=== PATIENT | female | born 1990 | race Two or more races ===

== ENCOUNTER 2024-07-15 08:31 | Emergency (ER) | payer MEDICAID, SELFPAY ==
[2024-07-15 08:33] VITALS: BMI 34.7
[2024-07-15 08:41] VITALS: BP 111/74; PULSE 88; RESP 19; TEMP 36.6; O2SAT 99
[2024-07-15 08:42] VITALS: BMI 27.5
--- NOTE | 2024-07-15 08:43 | XR_ITS ---
Examination: CT brain head without contrast. 2-D sagittal coronal reconstructions Date and time of exam:July 15, 2024 0937 hours INDICATIONS: Headaches beginning 2 months ago CTDI: vol (mGy):46.9 DLP: (mGycm):864 Technique: Multiple CT axial sections of the brain have been obtained, 5 mm slice thickness. Contrast has not been administered. 2-D sagittal, coronal reconstructions have been obtained Low dose protocols were performed. One or more of the following dose reduction techniques were used; automated exposure control, adjustment of the mA and/or KV according to patient size, use of iterative reconstruction technique. Findings: No significant ventricular enlargement. Intra-axial or extra-axial hemorrhage density is not seen. No mass effect or midline shift Basal cisterns are not remarkable. Fourth ventricle is midline. Cranial vault intact. Impression: Negative for acute hemorrhage, mass effect or midline shift Advise clinical correlation follow-up accordingly
[2024-07-15 10:00] LABS: Basophils # (Auto) 0.1 Thou/mm3 (0.0-0.2); Basophils % (Auto) 1 % (0-2.5); Eosinophils # (Auto) 0.2 Thou/mm3 (0.0-0.5); Eosinophils % (Auto) 4 % (0-10); Hematocrit 39.1 % (36.0-46.0); Immature Granulocytes % (Auto) 0 % (0-0); Immature Granulocytes Auto 0.02 Thou/mm3 (0.00-0.00); Lymphocytes # (Auto) 1.6 Thou/mm3 (1.0-4.8); Lymphocytes % (Auto) 33 % (10-50); Mean Corpuscular HGB Conc 33.2 g/dl (31.0-37.0); Mean Corpuscular Hemoglobin 28.7 pg (25.0-35.0); Mean Corpuscular Volume 86 fL (80-100); Monocytes # (Auto) 0.5 Thou/mm3 (0.0-0.8); Monocytes % (Auto) 11 % (0-12); Neutrophils # (Auto) 2.4 Thou/mm3 (1.8-7.7); Neutrophils % (Auto) 50 % (37-80); Nucleated Red Blood Cell % 0 /100 WBC (0); Platelet Count 232 Thou/mm3 (140-440); RDW Standard Deviation 38.9 fL (36.4-46.3); Red Blood Count 4.53 Miln/mm3 (4.00-5.20); White Blood Count 4.7 Thou/mm3 (3.6-11.0)
[2024-07-15 10:19] LABS: Alanine Aminotransferase 16 U/L (10-49); Albumin, Serum 4.6 gm/dL (3.5-5.0); Albumin/Globulin Ratio 1.6 (1.2-2.2); Alkaline Phosphatase 93 U/L (46-116); Anion Gap 6 (7-16); Aspartate Amino Transferase 21 U/L (0-34); BUN/Creatinine Ratio 13 Ratio (12-20); Bilirubin,Total 0.7 mg/dL (0.3-1.2); Blood Urea Nitrogen 9 mg/dL (9-23); Carbon Dioxide 26.1 mMol/L (20.0-31.0); Chloride 103 mMol/L (98-107); Creatinine (Component) 0.7 mg/dL (0.6-1.3); Estimated Creatinine Clearance 107.7 mL/min (>60); Globulin 2.8 gm/dL (2.3-3.5); Glucose 95 mg/dL (74-106); Osmolality,Calculated 268 (275-295); Potassium 4.2 mMol/L (3.4-5.1); Sodium 135 mMol/L (136-145); Total Protein 7.4 gm/dL (5.7-8.2); eGFR > 60 See Note
--- NOTE | 2024-07-15 10:26 | EDNOTE_ITS ---
ED Headache RME/HPI General Chief Complaint: Headache Stated Complaint: SHAFFER x2 MONTHS, EYES BULGING TODAY Time Seen by Provider: 07/15/24 08:34 Arrival date/time: 07/15/24 08:31 33-year-old female presents to the emergency department complains of headache ongoing intermittently for the last couple of months patient ports no chest pain or shortness of breath no weakness no dizziness Limitations: no limitations Related Data Previous Rx's ?Medication ?Instructions ?Recorded cyclobenzaprine 10 mg tablet 10 mg PO TID PRN muscle spasm #30 12/23/20 tabs ibuprofen 800 mg tablet 800 mg PO TID PRN pain #30 tabs 12/23/20 tramadol 50 mg tablet 50 mg PO BID PRN pain #7 tabs 12/23/20 ibuprofen 600 mg tablet 600 mg PO Q6H #30 tabs 09/29/22 ibuprofen 600 mg tablet 600 mg PO Q6H #30 tabs 06/11/23 acetaminophen-caffeine 500 mg-65 1 tab PO Q6H PRN pain #30 tabs 07/15/24 mg tablet (Excedrin Tension Headache) ibuprofen 600 mg tablet 600 mg PO Q6H #30 tabs 07/15/24 Allergies Allergy/AdvReac Type Severity Reaction Status Date / Time No Known Allergies Allergy Verified 07/15/24 08:36 Review of Systems Review of Systems Systems Reviewed: All systems reviewed, normal except as documented Constitutional Constitutional: Reports system reviewed and no additional complaints, except as documented, Denies fever(s) and Reports headache(s) Eyes Eyes: Reports system reviewed and no additional complaints, except as documented and Denies blurry vision ENT Ears, Nose, Mouth, and Throat: Reports system reviewed and no additional complaints, except as documented, Reports headache(s), Reports nasal congestion and Reports nasal discharge Cardiovascular Cardiovascular: Reports system reviewed and no additional complaints, except as documented, Denies chest pain and Denies dyspnea Respiratory Respiratory: Reports system reviewed and no additional complaints, except as documented, Denies chest congestion, Denies cough and Denies dyspnea Gastrointestinal Gastrointestinal: Reports system reviewed and no additional complaints, except as documented and Denies abdominal pain Integumentary/Breasts Skin/Breast: Reports system reviewed and no additional complaints, except as documented and Denies rash Neurologic Neurologic: Reports system reviewed and no additional complaints, except as documented, Reports as per HPI and Reports headache(s) Past Medical History Past Medical History NEUROLOGIC: Negative Neurological Disorders CARDIAC: Negative Cardiac Disorders ED Exam General Limitations: Present no limitations General appearance: Present alert and in no apparent distress Head Head exam: Present atraumatic, normocephalic and normal inspection Eye Eye exam: Present normal appearance, PERRL and EOMI; Absent conjunctival injection ENT ENT exam: Present normal exam, normal oropharynx and mucous membranes moist Neck Neck exam: Present normal inspection, full ROM and trachea midline Chest Chest inspection: Present normal inspection and symmetric chest wall rise Respiratory Respiratory exam: Present normal lung sounds bilaterally; Absent respiratory distress Cardiovascular Cardiovascular exam: Present regular rate, normal rhythm and normal heart sounds Abdominal Exam Abdominal exam: Present soft and normal bowel sounds; Absent distention, tenderness, guarding, rebound or rigidity Extremities Exam Extremities exam: Present normal inspection and full ROM Back Exam Back exam: Present normal inspection and full ROM Neurological Exam Neurological exam: Present alert, oriented X3 and CN II-XII intact Psychiatric Psychiatric exam: Present normal affect and normal mood Skin Skin exam: Present warm, dry, intact and normal color Course Quality Measures none Orders Category Date Time Status Bedside COVID-19 Antigen Test NOW Care 07/15/24 08:44 Completed Bedside Influenza A&B Antigen Test NOW Care 07/15/24 08:[address] head/brain wo con Stat Exams 07/15/24 08:43 Completed CBC [CBC] Stat Lab 07/15/24 09:46 Completed CMP [Comprehensive Metabolic Panel] Stat Lab 07/15/24 09:46 Completed HCG,Qualitative Serum Stat Lab 07/15/24 09:46 Completed Vital Signs Vital signs: Vital Signs Temperature 97.9 F 07/15/24 08:41 Pulse Rate 88 07/15/24 08:41 Respiratory Rate 19 07/15/24 08:41 Blood Pressure 111/74 07/15/24 08:41 Pulse Oximetry (%) 99 07/15/24 08:41 Oxygen Delivery Method Room Air 07/15/24 08:41 O2 saturation 99% room air within normal limits Headache MDM Narrative MDM Narrative:: 33-year-old female presents to the emergency department complains of headache ongoing intermittently for the last couple of months patient ports no chest pain or shortness of breath no weakness no dizziness On exam patient has no abnormal neurological findings patient walks with steady gait Lab work as well as CT scan obtained no acute emergent findings noted As patient has no abnormal neurological findings patient be discharged home at this time Patient instructed to have outpatient MRI and a referral to neurology if symptoms persist Patient discharged home in no distress to follow-up with primary care doctor in the next 24 to 48 hours and for any worsening symptoms to return to the ER immediately Patient data External records reviewed:: [facility] previous records Clinical information provided by:: patient Social determinants that could affect healthcare access:: none Patient has the following chronic illnesses:: None How is presenting disease/condition affected by chronic disease/condition?: no chronic disease Evaluation data The following diagnostics were reviewed and interpreted by me:: lab results and radiology exam(s) Lab and/or radiology exams considered but not ordered:: Labs and radiology obtained Interpretation Summary: Reviewed by me Medications / Prescriptions Medications or Prescriptions considered but not ordered:: Given Medication administrations:: Given Consultations Consultation(s) initiated? (list below): No Diagnosis Differential diagnosis headache: migraine, tension headache, subarachnoid hemorrhage and headache Most likely diagnosis given after review of the tests above:: Headache Admission Indicated Admission indicated?: not indicated Admission Request Was there a request for admission?: No Disposition Plan Disposition Plan: Discharge Discharge Attestation Discharge Attestation: The patient and all family members were given an opportunity to ask questions and understood the discharge instructions. Discharge instructions specifically effects, indications for sooner follow up or return to the emergency department, and the expected course of current diagnosis. Patient condition: Stable Discharge Plan Plan Patient Disposition: HOME (Self Care) Disposition Comment: Stable Prescriptions/Referrals Prescriptions/Med Rec: New Excedrin Tension Headache 500-65 mg tablet 1 tab PO Q6H PRN (Reason: pain) Qty: 30 0RF ibuprofen 600 mg tablet 600 mg PO Q6H Qty: 30 0RF No Action cyclobenzaprine 10 mg tablet 10 mg PO TID PRN (Reason: muscle spasm) Qty: 30 0RF ibuprofen 800 mg tablet 800 mg PO TID PRN (Reason: pain) Qty: 30 0RF tramadol 50 mg tablet 50 mg PO BID PRN (Reason: pain) Qty: 7 0RF ibuprofen 600 mg tablet 600 mg PO Q6H Qty: 30 0RF ibuprofen 600 mg tablet 600 mg PO Q6H Qty: 30 0RF Referrals: Mehul Bean MD [Primary Care Provider] - 07/16/24 Problem List Clinical Impression: Headache Patient/Caregiver Discharge Instructions Education Materials: Self-Care for Headaches Additional Instructions: Please follow up with your primary care doctor in the next 24-48hrs for any worsening symptoms return here immediately Print Language: Kiswahili Stand Alone Forms: Catrina Award Info., Patient Portal Info Letter PA/[employer]PER[employer] Supervising Physician PA/[employer]PER[employer] Supervising Physician: Dr. Carvajal
[2024-07-15 10:52] LABS: HCG,Qualitative Serum Negative
== END 2024-07-15 10:45 | disposition home or self-care (01) ==
PROVIDERS: Nurse Practitioner Primary Care; Emergency Provider Emergency Medicine; PCP Family Medicine
DX: R51.9 Headache, unspecified (principal)
CPT/HCPCS: 36415; 70450; 80053; 84703; 85025; 87400; 87811; 99284

== ENCOUNTER 2024-09-17 13:46 | Emergency (ER) | payer MEDICAID, SELFPAY ==
[2024-09-17 14:19] VITALS: BP 104/70; PULSE 68; RESP 16; TEMP 36.9; O2SAT 100; BMI 27.4
--- NOTE | 2024-09-17 14:25 | XR_ITS ---
Examination: Shoulder,right, 3 views Technique: Shoulder AP internal rotation, AP external rotation, Y view shoulder, 3 views Exam date and time :September 17, 2024 1435 hours INDICATIONS: Right shoulder pain beginning 2 years ago. FINDINGS: Mild narrowing glenohumeral joint No fracture or shoulder dislocation No calcific tendinitis IMPRESSION: Mild narrowing glenohumeral joint
--- NOTE | 2024-09-17 14:25 | EDNOTE_ITS ---
<Statement entered by Fatuma Oliva MD - 09/18/24 07:26> As co-signing physician, I was present and available for consult prn. I concur with the plan and care as documented by the midlevel provider. Upper Extremity Injury RME/HPI General Chief Complaint: Extremity Injury, Upper Stated Complaint: RIGHT SHOULDER PAIN Time Seen by Provider: 09/17/24 14:25 Source: patient Arrival date/time: 09/17/24 13:46 34-year-old female with no known medical history presents to the emergency room with a chief complaint of right shoulder pain x 1 week Mode of arrival: ambulatory Limitations: no limitations Related Data Previous Rx's ?Medication ?Instructions ?Recorded cyclobenzaprine 10 mg tablet 10 mg PO TID PRN muscle s pasm #30 12/23/20 tabs ibuprofen 800 mg tablet 800 mg PO TID PRN pain #30 t abs 12/23/20 tramadol 50 mg tablet 50 mg PO BID PRN pain #7 tab s 12/23/20 ibuprofen 600 mg tablet 600 mg PO Q6H #30 tabs 09/29 ibuprofen 600 mg tablet 600 mg PO Q6H #30 tabs 06/11 acetaminophen-caffeine 500 mg-65 1 tab PO Q6H PRN pain #30 tabs 07/15/24 mg tablet (Excedrin Tension Headache) ibuprofen 600 mg tablet 600 mg PO Q6H #30 tabs 07/15 Allergies Allergy/AdvReac Type Severity Reaction Status Date / Time No Known Allergies Allergy Verified 07/15/24 08:36 Review of Systems Review of Systems Systems Reviewed: All systems reviewed, normal except as documented Constitutional Constitutional: Reports system reviewed and no additional complaints, except as documented, Denies fatigue, Denies fever(s), Denies headache(s) and Denies weakness Eyes Eyes: Reports system reviewed and no additional complaints, except as documented, Denies blurry vision and Denies change in vision ENT Ears, Nose, Mouth, and Throat: Reports system reviewed and no additional complaints, except as documented, Denies otalgia, Denies headache(s), Denies nasal congestion, Denies throat swelling and Denies vertigo Cardiovascular Cardiovascular: Reports system reviewed and no additional complaints, except as documented, Denies chest pain, Denies dyspnea and Denies dyspnea on exertion Respiratory Respiratory: Reports system reviewed and no additional complaints, except as documented, Denies chest congestion, Denies cough, Denies dyspnea, Denies dyspnea on exertion and Denies wheezing Gastrointestinal Gastrointestinal: Reports system reviewed and no additional complaints, except as documented, Denies abdominal pain, Denies cramping, Denies nausea and Denies vomiting Genitourinary Genitourinary: Reports system reviewed and no additional complaints, except as documented Musculoskeletal Musculoskeletal: Reports system reviewed and no additional complaints, except as documented, Reports arthralgias, Denies back pain, Denies joint swelling, Reports limited range of motion, Reports muscle weakness, Denies numbness, Denies stiffness and Denies tingling Integumentary/Breasts Skin/Breast: Reports system reviewed and no additional complaints, except as documented and Denies wounds Neurologic Neurologic: Reports system reviewed and no additional complaints, except as documented, Denies confusion, Denies headache(s), Denies lack of coordination, Denies numbness, Denies tingling, Denies vertigo and Denies weakness Psychiatric Psychiatric: Reports system reviewed and no additional complaints, except as documented, Denies anxiety, Denies confusion, Denies depression, Denies paranoia, Denies suicidal ideation and Denies tactile hallucinations Endocrine Endocrine: Reports system reviewed and no additional complaints, except as documented and Denies fatigue Hematologic/Lymphatic Hematologic/Lymphatic: Reports system reviewed and no additional complaints, except as documented and Denies lymphadenopathy Allergic/Immunologic Allergic/Immunologic: Reports system reviewed and no additional complaints, except as documented, Denies throat swelling, Denies urticaria and Denies wheezing Past Medical History Past Medical History NEUROLOGIC: Negative Neurological Disorders CARDIAC: Negative Cardiac Disorders or Congestive Heart Failure RESPIRATORY: Negative Chronic Obstructive Pulmonary Disease (COPD) GASTROINTESTINAL: Negative Gastrointestinal Disorders GENITOURINARY: Positive Kidney Stones; Negative Renal Disease REPRODUCTIVE: Positive Previous Pregnancies MUSCULOSKELETAL: Negative Musculoskeletal Disorders ENDOCRINE: Negative Endocrine Disorders, Diabetes Mellitus Type 1 or Diabetes Mellitus Type 2 HEMATOLOGIC: Negative Blood Disorders OTHER HISTORY: Negative Organ Transplant Surgical History SURGICAL: Positive Abdominal Surgery and Section; Negative Cardiac Surgery, Endocrine Surgery, Thyroidectomy, Joint Replacement, Neurologic Surgery, Mastectomy, Lumpectomy, Hysterectomy, Tubal Ligation or Organ Transplant Social History SMOKING STATUS: Never smoker SUBSTANCE USE: does not use ED Exam General Limitations: Present no limitations General appearance: Present alert and in no apparent distress Head Head exam: Present atraumatic Eye Eye exam: Present normal appearance, PERRL and EOMI ENT ENT exam: Present normal exam, normal oropharynx and mucous membranes moist Neck Neck exam: Present normal inspection, full ROM and trachea midline Chest Chest inspection: Present normal inspection and symmetric chest wall rise Respiratory Respiratory exam: Present normal lung sounds bilaterally Cardiovascular Cardiovascular exam: Present regular rate, normal rhythm and normal heart sounds Abdominal Exam Abdominal exam: Present soft and normal bowel sounds Extremities Exam Extremities exam: Present normal inspection and full ROM Expanded Upper Extremity Exam Shoulder exam: Present tenderness and tenderness over AC joint; Absent full ROM, swelling, deformity or erythema Arm exam: Present normal inspection Elbow exam: Present normal inspection Forearm/Wrist exam: Present normal inspection Hand exam: Present normal inspection Vascular exam: Normal capillary refill Back Exam Back exam: Present normal inspection and full ROM Neurological Exam Neurological exam: Present alert, oriented X3 and CN II-XII intact Psychiatric Psychiatric exam: Present normal affect and normal mood Skin Skin exam: Present warm, dry, intact and normal color Course Quality Measures none Orders Category Date Time Status sling [Splint / Immobilizer] STAT Care 09/17/24 14:25 Completed XR shoulder RT min 2V Stat Exams 09/17/24 14:25 Completed HYDROcodone*/APAP 5/325 [[place] 5/325] Med 09/17/24 14:33 Discontinued 1 tab PO X1 ONE Ibuprofen Tab [Motrin Tab] Med 09/17/24 14:25 Discontinued 600 mg PO X1 ONE Ondansetron Odt [Zofran Odt] Med 09/17/24 14:33 Discontinued 4 mg PO X1 ONE Vital Signs Vital signs: Vital Signs Temperature 98.4 F 09/17/24 14:19 Pulse Rate 68 09/17/24 14:19 Respiratory Rate 16 09/17/24 14:19 Blood Pressure 104/70 09/17/24 14:19 Pulse Oximetry (%) 100 09/17/24 14:19 Oxygen Delivery Method Room Air 09/17/24 14:19 O2 saturation 100% within normal limits Extremity Injury MDM Narrative MDM Narrative:: 34-year-old female with no known medical history presents to the emergency room with a chief complaint of right shoulder pain x 1 week Patient is hemodynamically stable and in no apparent distress Physical examination shows tenderness with palpation to the right shoulder. The patient has a limited range of motion and is unable to lift her right shoulder above her head. Patient states she has pain when she moves her right arm. Patient denies any trauma there was no pulling injury patient states this injury has been going on for the last 2 years but as of the last week began having more pain to the area. Patient states she has been taking ibuprofen and it helps temporarily but the pain begins again. An x-ray of the right shoulder was completed and shows mild narrowing of the glenohumeral joint. There are no acute fractures or no acute dislocations. Patient was educated to follow-up with her primary care provider as an outpatient MRI is indicated to check for any ligament damage or tears. A sling was given to the patient for comfort Patient was educated to follow-up with primary care provider in the next 24 to 48 hours and return to the emergency room for any evidence of worsening signs or symptoms Patient data External records reviewed:: [facility] previous records Clinical information provided by:: patient Social determinants that could affect healthcare access:: none Patient has the following chronic illnesses:: No chronic illness How is presenting disease/condition affected by chronic disease/condition?: no chronic disease Evaluation data The following diagnostics were reviewed and interpreted by me:: lab results and radiology exam(s) Lab and/or radiology exams considered but not ordered:: Labs and radiology exams considered and ordered Interpretation Summary: Right shoulder [id number]: Mild narrowing glenohumeral joint No fracture or shoulder dislocation No calcific tendinitis IMPRESSION: Mild narrowing glenohumeral joint Medications / Prescriptions Medications or Prescriptions considered but not ordered:: Medication given Medication administrations:: Medication Administration History Discontinued Medications Hydrocodone Bitart/Acetaminophen (Hydrocodone/Apap 5/325 Tablet) 1 tab PO X1 ONE Stop: 09/17/24 14:34 Last Admin: 09/17/24 15:44 Dose: 1 tab Documented By: ELEAZAR Ibuprofen (Ibuprofen Tab 600 Mg Tablet) 600 mg PO X1 ONE Stop: 09/17/24 14:26 Last Admin: 09/17/24 14:30 Dose: Not Given Documented By: Non-Admin Reason: Other, see note Comments: took 600mg IBU at 1400 Ondansetron HCl (Ondansetron Odt 4 Mg Tabrap) 4 mg PO X1 ONE; Protocol Stop: 09/17/24 14:34 Last Admin: 09/17/24 15:45 Dose: 4 mg Documented By: VG Medication given Consultations Consultation(s) initiated? (list below): No Diagnosis Upper Extremity Injury Differential Diagnosis: dislocation of shoulder and other (Shoulder sprain/shoulder fracture) Most likely diagnosis given after review of the tests above:: Right shoulder sprain Admission Indicated Admission indicated?: not indicated Admission Request Was there a request for admission?: No Disposition Plan Disposition Plan: Discharge Discharge Attestation Discharge Attestation: The patient and all family members were given an opportunity to ask questions and understood the discharge instructions. Discharge instructions specifically effects, indications for sooner follow up or return to the emergency department, and the expected course of current diagnosis. Patient condition: Stable Discharge Plan Plan Patient Disposition: HOME (Self Care) Disposition Comment: Stable Prescriptions/Referrals Prescriptions/Med Rec: No Action cyclobenzaprine 10 mg tablet 10 mg PO TID PRN (Reason: muscle spasm) Qty: 30 0RF ibuprofen 800 mg tablet 800 mg PO TID PRN (Reason: pain) Qty: 30 0RF tramadol 50 mg tablet 50 mg PO BID PRN (Reason: pain) Qty: 7 0RF ibuprofen 600 mg tablet 600 mg PO Q6H Qty: 30 0RF ibuprofen 600 mg tablet 600 mg PO Q6H Qty: 30 0RF Excedrin Tension Headache 500-65 mg tablet 1 tab PO Q6H PRN (Reason: pain) Qty: 30 0RF ibuprofen 600 mg tablet 600 mg PO Q6H Qty: 30 0RF Referrals: Mehul Bean MD [Primary Care Provider] - In 1 week Problem List Clinical Impression: Sprain of right shoulder Patient/Caregiver Discharge Instructions Education Materials: ED Shoulder Sprain Additional Instructions: Please follow-up with your primary care provider in the next 24 to 48 hours. Your x-ray was negative for any acute findings there is no fracture or dislocation of your shoulder. You will need to follow-up with your primary care provider if your symptoms continue for an MRI to check for any ligament damage or tears. For any evidence of worsening signs or symptoms return to the emergency room immediately Print Language: Hebrew Stand Alone Forms: Catrina Award Info., Patient Portal Info Letter JESSIKA/LAINEY Supervising Physician JESSIKA/LAINEY Supervising Physician: Dr. OLIVA
[2024-09-17] MEDS: HYDROcodone/APAP 5/325 TABLET 1 TAB PO (15:44)
[2024-09-17] MEDS: ONDANSETRON ODT 4 MG TABRAP PO (15:45)
== END 2024-09-17 17:08 | disposition home or self-care (01) ==
PROVIDERS: Emergency Provider Emergency Medicine; PCP Family Medicine
DX: S43.401A Unspecified sprain of right shoulder joint, initial encounter (principal); X58.XXXA Exposure to other specified factors, initial encounter
CPT/HCPCS: 73030; 99283; Q0162; A9270

== ENCOUNTER → 2024-09-23 | Outpatient (CLI) | payer MEDICAID, SELFPAY ==
[2024-09-23 19:01] LABS: HCG Qualitative,Urine Negative
== END | disposition home or self-care (01) ==
LOC: COPL 17:13
PROVIDERS: PCP Radiology Diagnostic Radiology; Referring Provider Radiology Diagnostic Radiology; Visit Provider Radiology Diagnostic Radiology
DX: Z32.00 Encounter for pregnancy test, result unknown (principal)
CPT/HCPCS: 81025

== ENCOUNTER → 2024-09-24 | Outpatient (CLI) | payer MEDICAID, SELFPAY ==
--- NOTE | 2024-09-24 09:30 | XR_ITS ---
Examination: MRI of brain without intravenous contrast. MRI brain with intravenous contrast. Date and time of exam:September 24, 2024 1009 hours INDICATIONS: Headaches double vision dizziness beginning one year ago Technique: Multiple axial and sagittal images of the brain to been obtained. Siemens high-resolution 1.52 Noris short bore scanner utilized. Sagittal sections, T1 weighted images, TR 500, TE 14, are performed. Axial sections proton-density and T2-weighted images have been obtained. Inversion recovery axial images, TR 9260, TE 111, TR 2500. Diffusion weighted images, axial sections, TR 4800, TE 128, B value 1000. Axial sections, ADC map, TR 4800, TE 128. Axial and coronal images were also obtained post 13 cc gadolinium administered intravenously. Findings:: Enlargement of the sella turcica is not present. The optic chiasm and infundibular stalk are not remarkable. There is no localized enlargement of the medulla or jt. Fourth ventricle and cerebellar tonsils appear normal in position. No subacute area of hemorrhage density is seen. Fourth ventricle is midline. Mass in the cerebellopontine angle region is not evident. 7th and 8th nerve complexes exhibit symmetry Globes are symmetrical Orbital musculature including medial lateral rectus muscles do not exhibit abnormality Increased white matter signal is evident, punctate foci increased signal in the white matter Effacement of the cortical sulcal markings is not identified. Mass effect upon the ventricular system is not identified. Diffusion-weighted images demonstrate no focus of restricted diffusion Contrast images demonstrate no abnormal enhancing lesions Impression: Negative for acute hemorrhage mass effect or midline shift Multiple punctate foci increased signal in the white matter, demyelinating disease
== END | disposition home or self-care (01) ==
PROVIDERS: PCP Physician Assistant; Referring Provider Physician Assistant; Visit Provider Physician Assistant
DX: R90.82 White matter disease, unspecified (principal)
CPT/HCPCS: 70553; A9579

== ENCOUNTER 2025-04-29 13:16 | Outpatient (AMB) | payer MEDICAID, SELFPAY ==
[2025-04-29 13:22] VITALS: BP 129/74; PULSE 150; RESP 19; TEMP 36.6; O2SAT 98; BMI 26.4
--- NOTE | 2025-04-29 13:22 | ACNOTE_ITS ---
Vital Signs 04/29/25 13:22 Height 1.6 m Height Method Stated Weight 67.642 kg Weight Measurement Method Standing Scale BMI 26.4 BP 129/74 Blood Pressure Source Automatic Cuff Blood Pressure Location Right Upper Arm Position Sitting Respiration 19 Pulse 150 H Pulse Source Monitor Temp 97.9 F Temp Source Temporal Artery Scan Pulse Oximetry (%) 98 Oxygen Delivery Method Room Air Allergies/Meds Allergies & Medications Allergies No Known Allergies Allergy (Verified 07/15/24 08:36) IA Intake Visit Data Collection New Patient or Established: Established Patient (seen at [facility] within 3 years) Reason for Visit:: STOMACH DISCOMFORT/ACID REFLUX Pain Present Currently: Yes Pain Location: Abdomen (OFF AND ON MORE LIKE HEARTBURN) PCP or OBGYN visit in last 3 months: No Hx Now: No Do You Feel Safe at Home: Yes Authorities Contacted: N/A Smoking Status Smoking Status: Never smoker Immunization / Flu Flu Vaccine in the Last 12 Months: No Flu Vaccine Exclusion Criteria: No Exclusion Criteria Past Medical History Past Medical History NEUROLOGIC: Negative Neurological Disorders CARDIAC: Negative Cardiac Disorders or Congestive Heart Failure RESPIRATORY: Negative Chronic Obstructive Pulmonary Disease (COPD) GASTROINTESTINAL: Negative Gastrointestinal Disorders GENITOURINARY: Positive Kidney Stones; Negative Renal Disease REPRODUCTIVE: Positive Previous Pregnancies ENDOCRINE: Negative Endocrine Disorders, Diabetes Mellitus Type 1 or Diabetes Mellitus Type 2 HEMATOLOGIC: Negative Blood Disorders OTHER HISTORY: Negative Organ Transplant Surgical History SURGICAL: Negative Thyroidectomy, Hysterectomy or Organ Transplant Social History SMOKING STATUS: Smoking status: Never smoker Patient Portal Questionaires Social History Tobacco History Smoking Status: Never smoker Domestic Abuse History Do You Feel Safe at Home: Yes Review of Systems Report any current symptoms Only answer those that you have currently: Past Medical History Past Medical History Have you ever been diagnosed with any of the following: Cardiology Problems Congestive Heart Failure: No Respiratory Problems Chronic Obstructive Pulmonary Disease (COPD): No Genital/Urinary Problems Renal Disease: No Kidney Stones: Yes Reproductive Problems Previous Pregnancies: Yes Endocrine Problems Diabetes Mellitus Type 1: No Diabetes Mellitus Type 2: No Other Problems Organ Transplant: No Surgical History Hysterectomy: No Thyroidectomy: No History of Present Illness HPI Narrative Patient is a 34 year old female with no known past medical history, presenting with chief complaints of difficulty sleeping, gerd & headaches. Patient states she cannot sleep for the past few months, has been getting better while taking vitamins (4-6 hours per day), sometimes takes naps, tired during the day, but is not falling asleep during the day. Patient states she has been taking over the counter medications including antacids to help stomach pain for the last 2 weeks ago, which has helped her pain. States the stomach pain intensity has been constant for this time. States eating food makes the pain worse. Patient also endorses headaches (For the last year, MRI brain 2024 negative imaging, present during more stressful situations) Patient had tachycardia to 150 in clinic, will assess with EKG. Assessment & Plan Diagnosis / Problem List (1) Tension headache: Status: Acute Assessment & Plan: Patient reported headache by the end of the day, she has been having stressful lifestyle. She is taking care of her mother lately. She reported that she has also insomnia with nightmares. Patient denied any focal neurological deficit such as weakness, blurry vision, numbness, loss of balance. Patient has had an MRI a year ago and it was negative for any mass affect or aneurysm. Only punctate lesion. Probably because of her GERD it can cause her insomnia and eventually also cause headache. Will start treating the patient GERD, and then will reassess within 2 weeks Plan: ? Lifestyle modification, avoiding stress, caffeine, will reassess within 2 weeks after symptoms persistent will recommend the patient to a psychiatrist ? If her symptoms continue after 2 weeks we will screen the patient for thyroid disorder ? Famotidine for her GERD as below (2) Insomnia: Status: Acute Qualifiers: Insomnia type: psychophysiologic Qualified Code(s): F51.04 - Psychophysiologic insomnia Assessment & Plan: Most likely secondary to stress and anxiety. Patient reported that she has been under a lot of stress as above. Plan: ? Sleep hygiene was recommended ? If the patient symptoms persist after 2 weeks from addressing her GERD we will start the patient on either anxiolytic or refer the patient to a psychiatrist after ruling out thyroid disorder. (3) GERD (gastroesophageal reflux disease): Status: Acute Qualifiers: Esophagitis presence: esophagitis presence not specified Qualified Code(s): K21.9 - Gastro-esophageal reflux disease without esophagitis Assessment & Plan: Patient has been taking ibuprofen for headaches for the last. She reported that her diet most of the time has spicy ingredient. Her symptoms worse when she lay flat, and is relieved with over the counter meds. Her sx trigerred with food. No hx of heart disease or suddent among family memebers Plan: - Famotidine 40mg PO BID for two weeks - In case of worsening of your sx plz go to the ED as soon as possible (4) Tachycardia: Status: Acute Assessment & Plan: Tachycardia HR of 150 BPM, regular, she mentioned that she has been walking for almost a year Plan: -150 heart rate in clinic, rest of vitals wnl - Ordered EKG Orders: Orders EKG (RT) Today R00.0 - Tachycardia, unspecified Office Procedures [facility] Level of Care Nursing/Assessment Patient Status: Established Patient Nursing Assessment/Reassessment: Medication Reconciliation, Update PMH in EMR and Vital Signs Coordination of Care: Complex Care and Chronic Disease 1-5, Education Complex Pt/Fam, Consent,records obtained, informed consent and Lab and Imaging orders Established Patient Charge Established Patient Point Assignment: 95 Established Patient Point Charge: Level 3 (80-115)
== END 2025-04-29 14:19 | disposition home or self-care (01) ==
LOC: HODAHC 13:16
PROVIDERS: PCP Student in an Organized Health Care Education/Training Program; Referring Provider Student in an Organized Health Care Education/Training Program; Supervising Provider Internal Medicine; Visit Provider Student in an Organized Health Care Education/Training Program
DX: G44.209 Tension-type headache, unspecified, not intractable (principal); G47.00 Insomnia, unspecified; K21.9 Gastro-esophageal reflux disease without esophagitis; R00.0 Tachycardia, unspecified
CPT/HCPCS: 99213; G0463